=== PATIENT | male | born 1950 | race Caucasian/White ===

== ENCOUNTER → 2018-01-25 | Outpatient (CLI) | payer MEDICARE ==
[2018-01-25 09:21] LABS: BASO # 0.1 10^3/uL (0.0-0.2); BASO % 1.4 % (0.0-1.0); EOS # 0.4 10^3/uL (0.0-0.50); EOS % 9.9 % (0.0-3.0); HEMATOCRIT 36.8 % (42.0-52.0); HEMOGLOBIN 12.9 g/dl (13.5-17.5); IMMATURE GRANULOCYTE % 0.7 % (0-3.0); LYMPH # 1.6 10^3/uL (1.5-4.5); LYMPH % 35.6 % (24.0-44.0); MEAN CORPUSCULAR HEMOGLOBIN 33.7 pg (27.0-33.0); MEAN CORPUSCULAR HGB CONC 35.1 g/dl (32.0-36.5); MEAN CORPUSCULAR VOLUME 96.1 fl (80.0-96.0); MONO # 0.6 10^3/uL (0.0-0.8); MONO % 13.5 % (0.0-5.0); NEUTROPHILS # 1.7 10^3/uL (1.8-7.7); NEUTROPHILS % 38.9 % (36.0-66.0); PLATELET COUNT, AUTOMATED 228 10^3/uL (150-450); RED BLOOD COUNT 3.83 10^6/uL (4.30-6.10); RED CELL DISTRIBUTION WIDTH 12.8 % (11.5-14.5); WHITE BLOOD COUNT 4.4 10^3/uL (4.0-10.0)
[2018-01-25 09:53] LABS: ALBUMIN 4.1 GM/DL (3.2-5.2); ALBUMIN/GLOBULIN RATIO 1.32 (1.00-1.93); ALKALINE PHOSPHATASE 51 U/L (45-117); ALT/SGPT 37 U/L (12-78); ANION GAP 10 MEQ/L (8-16); AST/SGOT 48 U/L (7-37); BILIRUBIN,TOTAL 0.3 MG/DL (0.2-1.0); BLOOD UREA NITROGEN 7 MG/DL (7-18); CALCIUM LEVEL 9.3 MG/DL (8.8-10.2); CARBON DIOXIDE LEVEL 26 MEQ/L (21-32); CHLORIDE LEVEL 95 MEQ/L (98-107); CHOLESTEROL LEVEL 172 MG/DL (<200); CHOLESTEROL RISK RATIO 1.932 (<5); GLOMERULAR FILTRATION RATE > 60.0 (>49); GLUCOSE, FASTING 88 MG/DL (70-100); HDL CHOLESTEROL 89 MG/DL (>40); LDL CHOLESTEROL 70 MG/DL (<100); NON-HDL-C 83 MG/DL; POTASSIUM SERUM 4.4 MEQ/L (3.5-5.1); SODIUM LEVEL 131 MEQ/L (136-145); TOTAL PROTEIN 7.2 GM/DL (6.4-8.2); TRIGLYCERIDES LEVEL 67 MG/DL (<150)
[2018-01-25 10:41] LABS: HEPATITIS C VIRUS ABY INDEX 0.2 INDEX (<0.8)
== END ==
LOC: M LAB 08:36
DX: Z13.818 Encounter for screening for other digestive system disorders (principal); I10 Essential (primary) hypertension
CPT/HCPCS: 80053

== ENCOUNTER → 2018-08-26 | Outpatient (CLI) | payer MEDICARE ==
[2018-08-26 11:33] LABS: BASO % 0.6 % (0.0-1.0); EOS # 0.3 10^3/uL (0.0-0.50); EOS % 6.2 % (0.0-3.0); HEMATOCRIT 37.2 % (42.0-52.0); HEMOGLOBIN 13.1 g/dl (13.5-17.5); LYMPH # 1.5 10^3/uL (1.5-4.5); LYMPH % 29.1 % (24.0-44.0); MEAN CORPUSCULAR HEMOGLOBIN 33.7 pg (27.0-33.0); MEAN CORPUSCULAR HGB CONC 35.2 g/dl (32.0-36.5); MEAN CORPUSCULAR VOLUME 95.6 fl (80.0-96.0); MONO # 0.6 10^3/uL (0.0-0.8); NEUTROPHILS # 2.7 10^3/uL (1.8-7.7); NEUTROPHILS % 51.5 % (36.0-66.0); PLATELET COUNT, AUTOMATED 225 10^3/uL (150-450); RED BLOOD COUNT 3.89 10^6/uL (4.30-6.10); WHITE BLOOD COUNT 5.2 10^3/uL (4.0-10.0)
== END ==
LOC: M LAB 10:59
PROVIDERS: ATTEND Family Medicine
DX: I10 Essential (primary) hypertension (principal)

== ENCOUNTER → 2020-01-08 | Outpatient (CLI) | payer MEDICARE ==
[2020-01-08 11:15] LABS: HEMATOCRIT 41.5 % (42.0-52.0); HEMOGLOBIN 14.2 g/dl (13.5-17.5); MEAN CORPUSCULAR HEMOGLOBIN 32.8 pg (27.0-33.0); MEAN CORPUSCULAR HGB CONC 34.2 g/dl (32.0-36.5); MEAN CORPUSCULAR VOLUME 95.8 fl (80.0-96.0); PLATELET COUNT, AUTOMATED 234 10^3/uL (150-450); RED BLOOD COUNT 4.33 10^6/uL (4.30-6.10); WHITE BLOOD COUNT 4.6 10^3/uL (4.0-10.0)
[2020-01-08 11:32] LABS: ALT/SGPT 28 U/L (12-78); BILIRUBIN,TOTAL 0.4 MG/DL (0.2-1.0); BLOOD UREA NITROGEN 8 MG/DL (7-18); CALCIUM LEVEL 9.5 MG/DL (8.8-10.2); CARBON DIOXIDE LEVEL 33 MEQ/L (21-32); CHLORIDE LEVEL 89 MEQ/L (98-107); CHOLESTEROL LEVEL 154 MG/DL (<200); CHOLESTEROL RISK RATIO 2.483 (<5); CREATININE FOR GFR 0.71 MG/DL (0.70-1.30); GLOMERULAR FILTRATION RATE > 60.0 (>49); GLUCOSE, FASTING 102 MG/DL (70-100); HDL CHOLESTEROL 62 MG/DL (>40); LDL CHOLESTEROL 81 MG/DL (<100); NON-HDL-C 92 MG/DL; POTASSIUM SERUM 4.8 MEQ/L (3.5-5.1); SODIUM LEVEL 127 MEQ/L (136-145); TOTAL PROTEIN 7.6 GM/DL (6.4-8.2); TRIGLYCERIDES LEVEL 56 MG/DL (<150)
== END ==
LOC: M LAB 10:24
PROVIDERS: ATTEND Family Medicine
DX: I10 Essential (primary) hypertension (principal)

== ENCOUNTER → 2020-09-15 | Outpatient (CLI) | payer MEDICARE ==
--- NOTE | 2020-09-15 13:13 | PFTRPT ---
Height: 74.00 Inches Weight: 210.00 Lbs BSA: 2.22 Diagnosis: J44.9 DATE: 09/15/2020 ORDERED BY: Manuel Couch M.D. Pre and post bronchodilator studies have excellent technical quality. Forced vital capacity is reduced. FEV1 is out of proportion. Obstructive index is therefore reduced. Expiratory limit of the flow-volume loop suggests flow rate limitation. No significant bronchodilator response is identified. Total lung capacity is elevated. Residual volume is suggestive of very significant air trapping. Diffusing capacity is severely reduced, but just does correct for alveolar volume. No hemoglobin available for correction. Airway resistance mildly elevated, decrease in airway conductance. IMPRESSION: At least moderate obstructive ventilatory impairment with underlying air trapping. Borderline diffusion capacity impairment. Please correlate clinically. MTDD
== END ==
LOC: M CARPUL 12:40
PROVIDERS: ATTEND Family Medicine
DX: J44.9 Chronic obstructive pulmonary disease, unspecified (principal)

== ENCOUNTER → 2021-11-11 | Outpatient (CLI) | payer MEDICARE, MEDICAID ==
[2021-11-11 09:57] LABS: HEMOGLOBIN 13.7 g/dl (13.5-17.5); MEAN CORPUSCULAR HEMOGLOBIN 33.7 pg (27.0-33.0); MEAN CORPUSCULAR HGB CONC 34.3 g/dl (32.0-36.5); MEAN CORPUSCULAR VOLUME 98.3 fl (80.0-96.0); PLATELET COUNT, AUTOMATED 252 10^3/uL (150-450); RED BLOOD COUNT 4.07 10^6/uL (4.30-6.10); WHITE BLOOD COUNT 5.9 10^3/uL (4.0-10.0)
[2021-11-11 11:10] LABS: ALT/SGPT 26 U/L (12-78); BILIRUBIN,TOTAL 0.4 MG/DL (0.2-1.0); BLOOD UREA NITROGEN 12 MG/DL (7-18); CALCIUM LEVEL 9.6 MG/DL (8.8-10.2); CARBON DIOXIDE LEVEL 27 MEQ/L (21-32); CHLORIDE LEVEL 97 MEQ/L (98-107); CHOLESTEROL LEVEL 146 MG/DL (<200); CHOLESTEROL RISK RATIO 2.433 (<5); CREATININE FOR GFR 0.86 MG/DL (0.70-1.30); GLOMERULAR FILTRATION RATE > 60.0 (>49); GLUCOSE, FASTING 90 MG/DL (70-100); HDL CHOLESTEROL 60 MG/DL (>40); LDL CHOLESTEROL 73 MG/DL (<100); NON-HDL-C 86 MG/DL; POTASSIUM SERUM 4.3 MEQ/L (3.5-5.1); SODIUM LEVEL 133 MEQ/L (136-145); TOTAL PROTEIN 7.4 GM/DL (6.4-8.2); TRIGLYCERIDES LEVEL 64 MG/DL (<150)
== END ==
LOC: M LAB 09:01
PROVIDERS: ATTEND Family Medicine
DX: F41.9 Anxiety disorder, unspecified (principal)

== ENCOUNTER 2022-03-03 19:48 | Inpatient (IN) | payer MEDICARE, MEDICAID ==
[~2022-03-03] VITALS: Ht 175.3 cm; Wt 79.1 kg
[2022-03-03 22:05] LABS: BASO % 0.3 % (0.0-1.0); EOS % 0.1 % (0.0-3.0); HEMATOCRIT 32.1 % (42.0-52.0); HEMOGLOBIN 10.2 g/dl (13.5-17.5); LYMPH # 0.9 10^3/uL (1.5-5.0); LYMPH % 6.1 % (24.0-44.0); MEAN CORPUSCULAR HEMOGLOBIN 31.2 pg (27.0-33.0); MEAN CORPUSCULAR HGB CONC 31.8 g/dl (32.0-36.5); MEAN CORPUSCULAR VOLUME 98.2 fl (80.0-96.0); MONO # 0.7 10^3/uL (0.0-0.8); MONO % 4.6 % (2.0-8.0); NEUTROPHILS # 12.8 10^3/uL (1.5-8.5); NEUTROPHILS % 87.1 % (36.0-66.0); PLATELET COUNT, AUTOMATED 391 10^3/uL (150-450); RED BLOOD COUNT 3.27 10^6/uL (4.30-6.10); WHITE BLOOD COUNT 14.7 10^3/uL (4.0-10.0)
[2022-03-03 22:31] LABS: RSV AMPLIFICATION NEGATIVE (NEGATIVE)
[2022-03-03] MEDS: COMBIVENT RESPIMAT 100-20MCG INHALER 4GM INH SCH (22:38)
[2022-03-03 22:39] LABS: ALBUMIN 2.3 GM/DL (3.2-5.2); ALT/SGPT 52 U/L (12-78); BILIRUBIN,TOTAL 0.8 MG/DL (0.2-1.0); BLOOD UREA NITROGEN 54 MG/DL (7-18); CALCIUM LEVEL 8.7 MG/DL (8.8-10.2); CARBON DIOXIDE LEVEL 26 MEQ/L (21-32); CHLORIDE LEVEL 108 MEQ/L (98-107); CK-MB VALUE MASS 2.8 NG/ML (<3.6); CREATININE FOR GFR 1.22 MG/DL (0.70-1.30); GLOMERULAR FILTRATION RATE > 60.0 (>49); GLUCOSE, FASTING 110 MG/DL (70-100); MB/CK RELATIVE INDEX 3.46 (< OR =4); NT-PRO BNP 639 PG/ML (<125); POTASSIUM SERUM 3.4 MEQ/L (3.5-5.1); SODIUM LEVEL 142 MEQ/L (136-145); TOTAL PROTEIN 5.8 GM/DL (6.4-8.2)
[2022-03-03] MEDS ORDERED: MIRT-10 PO (23:06)
[2022-03-03] MEDS ORDERED: TREL1AER INH (23:06)
[2022-03-03] MEDS ORDERED: MED REC COMMENT (23:06)
[2022-03-03] MEDS ORDERED: GABA600T4 PO (23:06)
[2022-03-03] MEDS ORDERED: MELO15TA28 PO (23:06)
[2022-03-03] MEDS ORDERED: ALBU2.5V10 NEB (23:06)
[2022-03-03] MEDS ORDERED: VENTAER INH (23:06)
[2022-03-03] MEDS ORDERED: HYDR-3490 PO (23:06)
[2022-03-03] MEDS ORDERED: BUPR-71 PO (23:06)
[2022-03-03] MEDS ORDERED: HOME MED LIST COMPLETE! XX SCH (23:10)
[2022-03-03] MEDS ORDERED: FUROSEMIDE 40MG/4ML VIAL (J1940) IV ONE (23:45)
[2022-03-04] MEDS ORDERED: POTASSIUM CHLORIDE 10MEQ SR TABLET PO ONE ×2 (01:35→07:45)
[2022-03-04] MEDS ORDERED: ACETAMINOPHEN TAB 650MG DOSE (2X325MG) PO PRN (01:55)
[2022-03-04] MEDS: IPRATROPIUM 0.02% SOLN 0.5MG 2.5ML NEB NEB SCH ×6 (02:00→18:08)
[2022-03-04] MEDS: LEVALBUTEROL 1.25 MG/0.5 ML CONCENTRATE NEB NEB SCH ×6 (02:00→18:08)
[2022-03-04 02:19] LABS: MAGNESIUM LEVEL 1.8 MG/DL (1.8-2.4)
[2022-03-04] MEDS: cefTRIAXone SOD 1 GM in D5W MINI-BAG PLUS 50 ML IV SCH (02:28)
[2022-03-04 02:59] LABS: FERRITIN 588 NG/ML (26-388); IRON (FE) 45 UG/DL (65-175); PERCENT SATURATION 19.2 % (19.7-50.0); TOTAL IRON BINDING CAPACITY 234 UG/DL (250-450)
[2022-03-04 03:35] VITALS: BP 110/64
[2022-03-04] MEDS ORDERED: methylPREDNISolone 40MG 1ML VIAL IV ONE (04:00)
[2022-03-04] MEDS: DOXYCYCLINE HYCLATE 100MG TABLET PO SCH ×2 (04:13→20:18)
[2022-03-04] MEDS ORDERED: CALCIUM CARBONATE 500 MG CHEW U/D PO PRN (04:15)
[2022-03-04 04:42] LABS: VENOUS BASE EXCESS 2.7 (-2.0-2.0); VENOUS HCO3 26.3 MEQ/L (23.0-27.0); VENOUS PARTIAL PRESSURE O2 147.3 mmHg (30.0-50.0); VENOUS STANDARD HCO3 26.9 MEQ/L; VENOUS TOTAL CO2 27.5 MEQ/L (24.0-28.0)
[2022-03-04 04:47] LABS: BASO % 0.2 % (0.0-1.0); LYMPH # 1.1 10^3/uL (1.5-5.0); LYMPH % 8.1 % (24.0-44.0); MEAN CORPUSCULAR HEMOGLOBIN 31.5 pg (27.0-33.0); MEAN CORPUSCULAR HGB CONC 32.3 g/dl (32.0-36.5); MEAN CORPUSCULAR VOLUME 97.8 fl (80.0-96.0); MONO # 0.9 10^3/uL (0.0-0.8); MONO % 6.1 % (2.0-8.0); NEUTROPHILS # 11.7 10^3/uL (1.5-8.5); PLATELET COUNT, AUTOMATED 355 10^3/uL (150-450); RED BLOOD COUNT 3.17 10^6/uL (4.30-6.10)
[2022-03-04 05:18] LABS: BLOOD UREA NITROGEN 57 MG/DL (7-18); CALCIUM LEVEL 8.7 MG/DL (8.8-10.2); CARBON DIOXIDE LEVEL 28 MEQ/L (21-32); CHLORIDE LEVEL 106 MEQ/L (98-107); CREATININE FOR GFR 1.22 MG/DL (0.70-1.30); GLOMERULAR FILTRATION RATE > 60.0 (>49); GLUCOSE, FASTING 142 MG/DL (70-100); POTASSIUM SERUM 3.3 MEQ/L (3.5-5.1); SODIUM LEVEL 142 MEQ/L (136-145)
[2022-03-04 06:05] VITALS: BP 140/62
[2022-03-04 09:26] LABS: ABG HCO3 28.6 MEQ/L (22.0-26.0); ABG O2 SATURATION 93.1 % (95.0-99.0); ABG PARTIAL PRESSURE CO2 38.8 mmHg (35.0-45.0); ABG PARTIAL PRESSURE O2 67.8 mmHg (75.0-100.0); ABG STANDARD HCO3 28.9 MEQ/L (22.0-26.0); ABG TOTAL CO2 29.8 MEQ/L (23.0-31.0); ABG pH (ARTERIAL) 7.486 UNITS (7.350-7.450)
[2022-03-04] MEDS: GABAPENTIN 300 MG CAP PO SCH ×3 (09:51→20:18)
[2022-03-04] MEDS: ENOXAPARIN 40MG/0.4ML SYRINGE (J1650 PER 10MG) SC SCH (09:51)
[2022-03-04] MEDS: buPROPion **SR TABLET** (ZYBAN) 150MG PO SCH ×2 (09:51→20:18)
[2022-03-04] MEDS ORDERED: ISOVUE-370 76% 100ML VIAL As Ordered ONE (11:19)
[2022-03-04 14:00] VITALS: BP 122/58
[2022-03-04] MEDS: MIRTAZAPINE 15 MG TAB PO SCH (20:18)
[2022-03-04] MEDS: DIMETHICONE 2% OINTMENT(VANICREAM) 70GM TUBE TOP SCH (20:18)
[2022-03-04 20:33] VITALS: BP 123/67
[2022-03-04 20:37] VITALS: BP 125/75
[2022-03-05] MEDS: LEVALBUTEROL 1.25 MG/0.5 ML CONCENTRATE NEB NEB SCH ×4 (00:27→18:01)
[2022-03-05] MEDS: IPRATROPIUM 0.02% SOLN 0.5MG 2.5ML NEB NEB SCH ×4 (00:27→18:01)
[2022-03-05] MEDS: cefTRIAXone SOD 1 GM in D5W MINI-BAG PLUS 50 ML IV SCH (03:34)
[2022-03-05 05:06] VITALS: BP 118/49
[2022-03-05] MEDS: methylPREDNISolone 40MG 1ML VIAL IV SCH (05:07)
[2022-03-05] MEDS ORDERED: FLUBLOK(EGG FREE)(QUAD)INFLUENZA VACC 0.5ML SYRINGE 18YRS & OLDER IM.IMMUN ONE (09:00)
[2022-03-05] MEDS: ENOXAPARIN 40MG/0.4ML SYRINGE (J1650 PER 10MG) SC SCH (09:20)
[2022-03-05] MEDS: buPROPion **SR TABLET** (ZYBAN) 150MG PO SCH ×2 (09:20→20:14)
[2022-03-05] MEDS: DOXYCYCLINE HYCLATE 100MG TABLET PO SCH (09:20)
[2022-03-05] MEDS: GABAPENTIN 300 MG CAP PO SCH ×3 (09:20→20:14)
[2022-03-05] MEDS: DIMETHICONE 2% OINTMENT(VANICREAM) 70GM TUBE TOP SCH ×2 (09:23→21:49)
[2022-03-05] MEDS ORDERED: HYOSCYAMINE SULFATE 0.125 MG SUBL TABLET PO PRN (14:20)
[2022-03-05] MEDS: LORazepam 2 MG/ML VIAL IV PRN ×2 (16:39→21:49)
[2022-03-05] MEDS: MORPHINE 4 MG/ML 1ML VIAL/SYRINGE IV PRN (18:29)
[2022-03-05] MEDS ORDERED: ACETAMINOPHEN 650 MG SUPP PR PRN (18:45)
[2022-03-05] MEDS: MIRTAZAPINE 15 MG TAB PO SCH (20:14)
[2022-03-06] MEDS: IPRATROPIUM 0.02% SOLN 0.5MG 2.5ML NEB NEB SCH ×4 (00:22→21:11)
[2022-03-06] MEDS: LEVALBUTEROL 1.25 MG/0.5 ML CONCENTRATE NEB NEB SCH ×4 (00:22→21:11)
[2022-03-06] MEDS: MORPHINE 4 MG/ML 1ML VIAL/SYRINGE IV PRN ×5 (00:32→20:56)
[2022-03-06] MEDS: methylPREDNISolone 40MG 1ML VIAL IV SCH (05:04)
[2022-03-06] MEDS: GABAPENTIN 300 MG CAP PO SCH ×3 (08:22→20:38)
[2022-03-06] MEDS: buPROPion **SR TABLET** (ZYBAN) 150MG PO SCH ×2 (08:22→20:38)
[2022-03-06 08:46] LABS: FOLATE 2.7 NG/ML (>5.4)
[2022-03-06] MEDS: DIMETHICONE 2% OINTMENT(VANICREAM) 70GM TUBE TOP SCH ×2 (09:00→20:56)
[2022-03-06] MEDS: MIRTAZAPINE 15 MG TAB PO SCH (20:38)
[2022-03-07] MEDS: MORPHINE 4 MG/ML 1ML VIAL/SYRINGE IV PRN ×3 (01:30→10:41)
[2022-03-07] MEDS: IPRATROPIUM 0.02% SOLN 0.5MG 2.5ML NEB NEB SCH ×3 (02:00→19:14)
[2022-03-07] MEDS: LEVALBUTEROL 1.25 MG/0.5 ML CONCENTRATE NEB NEB SCH ×3 (02:00→19:14)
[2022-03-07] MEDS: LORazepam 2 MG/ML VIAL IV PRN (03:36)
[2022-03-07] MEDS: methylPREDNISolone 40MG 1ML VIAL IV SCH (05:26)
[2022-03-07] MEDS: buPROPion **SR TABLET** (ZYBAN) 150MG PO SCH ×2 (09:00→21:00)
[2022-03-07] MEDS: DIMETHICONE 2% OINTMENT(VANICREAM) 70GM TUBE TOP SCH ×2 (09:00→21:00)
[2022-03-07] MEDS: GABAPENTIN 300 MG CAP PO SCH ×3 (09:00→21:00)
[2022-03-07] MEDS: MORPHINE 10MG/0.5ML ORAL CONCENTRATE SOLUTION U/D SL SCH ×5 (14:04→23:00)
[2022-03-07] MEDS: LORazepam 2 MG TAB PO PRN ×3 (15:41→23:06)
[2022-03-07] MEDS: MIRTAZAPINE 15 MG TAB PO SCH (21:00)
[2022-03-08] MEDS: MORPHINE 10MG/0.5ML ORAL CONCENTRATE SOLUTION U/D SL SCH (01:14)
[2022-03-08] MEDS: LEVALBUTEROL 1.25 MG/0.5 ML CONCENTRATE NEB NEB SCH (02:00)
[2022-03-08] MEDS: IPRATROPIUM 0.02% SOLN 0.5MG 2.5ML NEB NEB SCH (02:00)
[2022-03-08] MEDS ORDERED: SCOPOLAMINE 1MG TRANSDERMAL PATCH TOP PRN (02:15)
== END 2022-03-08 07:00 | disposition expired | DRG 180 ==
LOC: EDBD 19:48 → M ED 19:48 → M ED INP 03-04 01:51 → ENRESERV 03-04 02:21 → M MSPAV 03-04 03:38
PROVIDERS: ADMIT Internal Medicine; ATTEND Internal Medicine
DX: C34.90 Malignant neoplasm of unspecified part of unspecified bronchus or lung (principal); A41.9 Sepsis, unspecified organism; J15.6 Pneumonia due to other Gram-negative bacteria; G93.41 Metabolic encephalopathy; J96.01 Acute respiratory failure with hypoxia; J44.1 Chronic obstructive pulmonary disease with (acute) exacerbation; C79.70 Secondary malignant neoplasm of unspecified adrenal gland; J98.11 Atelectasis; L03.116 Cellulitis of left lower limb; C78.7 Secondary malignant neoplasm of liver and intrahepatic bile duct; E27.40 Unspecified adrenocortical insufficiency; R18.0 Malignant ascites; M84.58XA Pathological fracture in neoplastic disease, other specified site, initial encounter for fracture; I27.21 Secondary pulmonary arterial hypertension; I27.81 Cor pulmonale (chronic); I10 Essential (primary) hypertension; K21.9 Gastro-esophageal reflux disease without esophagitis; I87.2 Venous insufficiency (chronic) (peripheral); F32.A Depression, unspecified; Z51.5 Encounter for palliative care; Z79.899 Other long term (current) drug therapy; M19.90 Unspecified osteoarthritis, unspecified site; Z87.891 Personal history of nicotine dependence; D64.9 Anemia, unspecified; E87.6 Hypokalemia